=== PATIENT | female | born 1975 | race Caucasian/White ===

== ENCOUNTER 2017-02-12 22:46 | Emergency (ER) | payer SELFPAY ==
[~2017-02-12] VITALS: Ht 160 cm; Wt 99.8 kg
[2017-02-12 23:20] VITALS: BP 141/91
[2017-02-12] MEDS ORDERED: CLIN300C8 PO (23:20)
[2017-02-12] MEDS ORDERED: IBUP-1060 PO (23:20)
--- NOTE | 2017-02-12 23:20 | PHYS DOC ---
Past Medical History Past Medical History: No Pertinent History Past Surgical History: No Surgical History Alcohol Use: Occasionally Drug Use: Amphetamine, Marijuana Adult General Chief Complaint Chief Complaint: DENTAL PROBLEM HPI HPI Patient is a 41 year old female presents to the ED complaining of dental pain x 1 day. States she woke up with the right side of her face a little swollen. States she has had a broken tooth for a long time that she has not had fixed yet. Describes the pain as sharp. Rates the pain as 7 out of 10. Tolerating by mouth but has pain with chewing. Denies fever, nausea/vomiting, difficulty swallowing, tongue swelling, chest pain or shortness of breath. Review of Systems Review of Systems Constitutional: Denies fever or chills [] Eyes: Denies change in visual acuity, redness, or eye pain [] HENT: Denies nasal congestion or sore throat [] Respiratory: Denies cough or shortness of breath [] Cardiovascular: No additional information not addressed in HPI [] GI: Denies abdominal pain, nausea, vomiting, bloody stools or diarrhea [] : Denies dysuria or hematuria [] Musculoskeletal: Denies back pain or joint pain [] Integument: Denies rash or skin lesions [] Neurologic: Denies headache, focal weakness or sensory changes [] Endocrine: Denies polyuria or polydipsia [] All other systems were reviewed and found to be within normal limits, except as documented in this note. Current Medications Current Medications Current Medications Medications (Trade) Dose Ordered Sig/Oralia Start Time Stop Time Status Last Admin Dose Admin Clindamycin Phosphate (Cleocin Im) 600 mg 1X ONCE 02/12/17 23:45 02/12/17 23:46 DC 02/12/17 23:37 600 MG Ibuprofen (Motrin) 600 mg 1X ONCE 02/13/17 00:00 02/13/17 00:01 DC 02/12/17 23:36 600 MG Allergies Allergies Allergies Coded Allergies Type Severity Reaction Last Updated Verified No Known Drug Allergies 10/15/14 No Physical Exam Physical Exam Constitutional: Well developed, well nourished, no acute distress, non-toxic appearance. [] HENT: Normocephalic, atraumatic, bilateral external ears normal, oropharynx moist, no oral exudates, nose normal. MILD RIGHT SIDED FACIAL SWELLING. RIGHT UPPER MOLAR DENTAL AVULSION/CARIES. POOR DENTITION THROUGHOUT. [] Eyes: PERRLA, EOMI, conjunctiva normal, no discharge. [] Neck: Normal range of motion, no tenderness, supple, no stridor. [] Cardiovascular:Heart rate regular rhythm, no murmur [] Lungs & Thorax: Bilateral breath sounds clear to auscultation [] Abdomen: Bowel sounds normal, soft, no tenderness, no masses, no pulsatile masses. [] Skin: Warm, dry, no erythema, no rash. [] Back: No tenderness, no CVA tenderness. [] Extremities: No tenderness, no cyanosis, no clubbing, ROM intact, no edema. [] Neurologic: Alert and oriented X 3, normal motor function, normal sensory function, no focal deficits noted. [] Psychologic: Affect normal, judgement normal, mood normal. [] Current Patient Data Vital Signs Vital Signs Date Time Temp Pulse Resp B/P (MAP) Pulse Ox O2 Delivery O2 Flow Rate FiO2 02/12/17 23:20 98.9 115 18 141/91 (108) 99 Room Air 98.9 EKG EKG [] Radiology/Procedures Radiology/Procedures [] Course & Med Decision Making Course & Med Decision Making Pertinent Labs and Imaging studies reviewed. (See chart for details) []Patient states she her heart rate is always high due to methamphetamine abuse. States she used earlier today. Denies any symptoms besides dental pain. Patient given clindamycin in ED. Will prescribe clindamycin and motrin outpatient. Discussed follow-up with dentist in 1-2 days. Provided contact information/education. Patient given dental clinic resources handout. Discussed the importance of follow-up and reasons to return to the ED. Patient understands and agrees with plan. Dragon Disclaimer Dragon Disclaimer This electronic medical record was generated, in whole or in part, using a voice recognition dictation system. Departure Departure Impression: Primary Impression: Dental caries Additional Impression: Dental infection Disposition: 01 HOME, SELF-CARE Condition: IMPROVED Referrals: NO PCP (PCP) KELLEY OLMSTEAD DDS Patient Instructions: Dental Abscess, Dental Caries Scripts Ibuprofen (IBUPROFEN) 800 Mg Tablet 800 MG PO PRN Q6HRS Y for INFLAMMATION, #20 TAB Prov: VAN NAYLOR 02/12/17 Clindamycin Hcl (CLINDAMYCIN HCL) 300 Mg Capsule 300 MG PO QID for 10 Days, #40 CAP Prov: VAN NAYLOR 02/12/17 Problem Qualifiers VAN NAYLOR Feb 12, 2017 23:20
[2017-02-12] MEDS ORDERED: CLINDAMYCIN IM 600 MG/4 ML VIAL. IM ONE (23:45)
[2017-02-13] MEDS ORDERED: IBUPROFEN 600 MG TABLET. PO ONE
== END 2017-02-12 23:58 | disposition home or self-care (01) ==
LOC: ER 22:46
DX: K04.7 Periapical abscess without sinus (principal); K02.9 Dental caries, unspecified
CPT/HCPCS: 96372; 99283; J3490